=== PATIENT | male | born 1970 | race Caucasian/White ===

== ENCOUNTER 2024-07-26 13:44 | Emergency (ER) | payer OTHER ==
[2024-07-26 15:03] LABS: ALT (SGPT) 62 U/L (8-55); AST (SGOT) 37 U/L (5-34); Albumin 3.3 g/dL (3.5-5.0); Alkaline Phosphatase 101 U/L (40-110); Anion Gap 10 mmol/L (10-20); BUN (Urea Nitrogen) 13 mg/dL (8.4-25.7); Bilirubin, Total 0.7 mg/dL (0.2-1.2); Calc. Creatinine Clearance 0 mL/min (70-130); Calcium 8.5 mg/dL (7.8-10.44); Carbon Dioxide 21 mmol/L (22-29); Chloride 114 mmol/L (98-107); Estimated GFR 86; Globulin 3.5 g/dL (2.4-3.5); Glucose 98 mg/dL (70-105); Potassium 4.2 mmol/L (3.5-5.1); Protein, Total 6.8 g/dL (6.0-8.3); Sodium 141 mmol/L (136-145)
[2024-07-26 15:06] LABS: #Basophils 0.02 10x3/uL (0.0-0.2); #Eosinphils 0.15 10x3/uL (0.0-0.5); #Monocytes 0.39 10x3/uL (0.0-1.1); #Neutrophils 1.64 10x3/uL (1.5-8.4); %Basophils 0.7 % (0.0-2.0); %Eosinophils 5.4 % (0.0-6.0); %Lymphocytes 19.9 % (18.0-47.0); %Monocytes 14.1 % (0.0-10.0); %Neutrophils 59.5 % (40.0-75.0); Hemoglobin 6.9 g/dL (13.5-17.5); Mean Corpuscular HGB CONC 28.8 g/dL (32.0-36.0); Mean Corpuscular Hemoglobin 22.1 pg (27.0-33.0); Mean Corpuscular Volume 76.9 fL (81.2-95.1); Platelet Count 92 10x3/uL (150-450); RBC Distribution Width 18.4 % (11.5-14.5); Red Blood Cell (RBC) Count 3.12 10x6/uL (4.32-5.72); Troponin I Less than 0.010 ng/mL (< 0.028); White Blood Cell (WBC) Count 2.8 10x3/uL (3.5-10.5)
[2024-07-26 17:48] LABS: Troponin I Less than 0.010 ng/mL (< 0.028)
== END 2024-07-26 19:13 | disposition short-term general hospital (02) ==
LOC: CSHERS 13:44 → EEVIPCON 13:44 → CSHERS 19:13
DX: D61.818 Other pancytopenia (principal); I10 Essential (primary) hypertension; Z79.899 Other long term (current) drug therapy
CPT/HCPCS: 36430; 71045; 80053; 82274; 83735; 83880; 84484; 85025; 86850; 86900; 86901; 86922; 93005; P9016

== ENCOUNTER 2024-08-16 13:53 | Emergency (ER) | payer OTHER ==
[2024-08-16 14:31] LABS: #Basophils 0.03 10x3/uL (0.0-0.2); #Eosinophils 0.18 10x3/uL (0.0-0.5); #Monocytes 0.65 10x3/uL (0.0-1.1); #Neutrophils 2.72 10x3/uL (1.5-8.4); %Basophils 0.6 % (0.0-2.0); %Eosinophils 3.9 % (0.0-6.0); %Lymphocytes 22.6 % (18.0-47.0); %Neutrophils 58.7 % (40.0-75.0); Hematocrit 26.5 % (38.8-50.0); Hemoglobin 7.9 g/dL (13.5-17.5); Mean Corpuscular HGB CONC 29.8 g/dL (32.0-36.0); Mean Corpuscular Hemoglobin 23.1 pg (27.0-33.0); Mean Corpuscular Volume 77.5 fL (81.2-95.1); Mean Platelet Volume 11.8 fL (7.4-10.4); Platelet Count 133 10x3/uL (150-450); RBC Distribution Width 20.2 % (11.5-14.5); Red Blood Cell (RBC) Count 3.42 10x6/uL (4.32-5.72); White Blood Cell (WBC) Count 4.6 10x3/uL (3.5-10.5)
[2024-08-16 14:36] LABS: ALT (SGPT) 97 U/L (8-55); AST (SGOT) 46 U/L (5-34); Albumin 3.2 g/dL (3.5-5.0); Alkaline Phosphatase 100 U/L (40-110); Anion Gap 12 mmol/L (10-20); BUN (Urea Nitrogen) 42 mg/dL (8.4-25.7); Calc. Creatinine Clearance 0 mL/min (70-130); Calcium 9.4 mg/dL (7.8-10.44); Carbon Dioxide 24 mmol/L (22-29); Chloride 112 mmol/L (98-107); Estimated GFR 99; Globulin 3.4 g/dL (2.4-3.5); Glucose 112 mg/dL (70-105); Potassium 4.6 mmol/L (3.5-5.1); Protein, Total 6.6 g/dL (6.0-8.3); Sodium 143 mmol/L (136-145)
[2024-08-16 14:39] LABS: Troponin I Less than 0.010 ng/mL (< 0.028)
[2024-08-16 18:09] LABS: Troponin I 0.014 ng/mL (< 0.028)
[2024-08-16 19:19] LABS: #Basophils 0.02 10x3/uL (0.0-0.2); #Eosinophils 0.15 10x3/uL (0.0-0.5); #Monocytes 0.44 10x3/uL (0.0-1.1); %Basophils 0.6 % (0.0-2.0); %Eosinophils 4.6 % (0.0-6.0); %Lymphocytes 31.6 % (18.0-47.0); %Monocytes 13.5 % (0.0-10.0); %Neutrophils 49.1 % (40.0-75.0); Hematocrit 23.5 % (38.8-50.0); Hemoglobin 6.9 g/dL (13.5-17.5); Mean Corpuscular HGB CONC 29.4 g/dL (32.0-36.0); Mean Corpuscular Hemoglobin 22.8 pg (27.0-33.0); Mean Corpuscular Volume 77.8 fL (81.2-95.1); Mean Platelet Volume 11.6 fL (7.4-10.4); Platelet Count 113 10x3/uL (150-450); RBC Distribution Width 20.2 % (11.5-14.5); Red Blood Cell (RBC) Count 3.02 10x6/uL (4.32-5.72); White Blood Cell (WBC) Count 3.3 10x3/uL (3.5-10.5)
[2024-08-16] MEDS ORDERED: Acetaminophen 500 MG TAB ONE (19:29)
== END 2024-08-16 22:37 | disposition short-term general hospital (02) ==
LOC: EEVIPCON 13:53 → CSHERS 13:53
DX: R07.89 Other chest pain (principal); D64.9 Anemia, unspecified; I95.1 Orthostatic hypotension; I25.10 Atherosclerotic heart disease of native coronary artery without angina pectoris; E03.9 Hypothyroidism, unspecified; I10 Essential (primary) hypertension; I25.2 Old myocardial infarction; Z87.891 Personal history of nicotine dependence
CPT/HCPCS: 36415; 36430; 71045; 80053; 83880; 84484; 85025; 86850; 86900; 86901; 93005; P9016

== ENCOUNTER 2024-09-15 04:37 | Emergency (ER) | payer OTHER ==
[2024-09-15 05:16] LABS: MDiff Complete? YES
[2024-09-15 05:20] LABS: Hematocrit 15.1 % (38.8-50.0); Hemoglobin 4.4 g/dL (13.5-17.5); INR-International Normal Ratio 1.2; Mean Corpuscular HGB CONC 29.1 g/dL (32.0-36.0); Mean Corpuscular Hemoglobin 23.3 pg (27.0-33.0); Mean Corpuscular Volume 79.9 fL (81.2-95.1); Mean Platelet Volume 11.7 fL (7.4-10.4); PTT 24.2 sec (22.0-33.0); Platelet Count 80 10x3/uL (150-450); Prothrombin Time 12.8 sec (9.5-12.1); RBC Distribution Width 19.8 % (11.5-14.5); Red Blood Cell (RBC) Count 1.89 10x6/uL (4.32-5.72); White Blood Cell (WBC) Count 1.8 10x3/uL (3.5-10.5)
[2024-09-15 05:25] LABS: ALT (SGPT) 18 U/L (8-55); AST (SGOT) 13 U/L (5-34); Albumin 2.5 g/dL (3.5-5.0); Alkaline Phosphatase 72 U/L (40-110); Anion Gap 10 mmol/L (10-20); BUN (Urea Nitrogen) 10 mg/dL (8.4-25.7); Bilirubin, Total 0.5 mg/dL (0.2-1.2); Calc. Creatinine Clearance 0 mL/min (70-130); Calcium 7.4 mg/dL (7.8-10.44); Carbon Dioxide 18 mmol/L (22-29); Chloride 117 mmol/L (98-107); Estimated GFR 105; Globulin 2.5 g/dL (2.4-3.5); Glucose 80 mg/dL (70-105); Magnesium 1.7 mg/dL (1.6-2.6); Potassium 3.6 mmol/L (3.5-5.1); Sodium 141 mmol/L (136-145)
[2024-09-15 05:28] LABS: Troponin I Less than 0.010 ng/mL (< 0.028)
[2024-09-15 05:39] LABS: Band 8 % (5-11); Eosinophils 4 % (0-10); Lymphocytes 22 % (21-51); Monocytes 12 % (0-10); Neutrophil 54 % (42-75)
[2024-09-15 06:03] LABS: Anisocytosis MODERATE=16-30 cells (100X) (0-5/hpf); Elliptocytes SLIGHT = 2-5 cells (100X) (0-1/hpf); Hypochromia MODERATE=16-30 cells (100X) (0-5/hpf); Ovalocytes SLIGHT = 2-5 cells (100X) (0-1/hpf); Polychromasia SLIGHT = 2-3 cells (100X) (0-2/hpf)
[2024-09-15 06:04] LABS: Platelet Adequacy Comment Appears Decreased
[2024-09-15 06:05] LABS: Critical Call w/ Read Back NUR.AS7@0514/JG2/WIT
[2024-09-15] MEDS ORDERED: Octreotide Acetate 50 MCG/ML AMP ONE (06:12)
[2024-09-15] MEDS ORDERED: Pantoprazole 40 MG VIAL ONE (06:12)
[2024-09-15] MEDS ORDERED: SODIUM CHLORIDE 0.9% IVPB SCH (06:30)
[2024-09-15] MEDS ORDERED: Octreotide Acetate 1,250 MCG in Sodium Chloride 0.9% 250 ML 250 ML IVPB SCH (06:30)
[2024-09-15] MEDS ORDERED: OCTREOTIDE ACETATE IVPB SCH (06:30)
[2024-09-15 13:02] LABS: Platelet Count 95 10x3/uL (150-450)
[2024-09-15 13:03] LABS: #Basophils 0.02 10x3/uL (0.0-0.2); #Eosinophils 0.12 10x3/uL (0.0-0.5); #Monocytes 0.34 10x3/uL (0.0-1.1); #Neutrophils 1.13 10x3/uL (1.5-8.4); %Basophils 0.9 % (0.0-2.0); %Eosinophils 5.4 % (0.0-6.0); %Lymphocytes 27.4 % (18.0-47.0); %Monocytes 15.2 % (0.0-10.0); %Neutrophils 50.7 % (40.0-75.0); Mean Corpuscular HGB CONC 29.2 g/dL (32.0-36.0); Mean Corpuscular Hemoglobin 24.6 pg (27.0-33.0); Mean Corpuscular Volume 84.5 fL (81.2-95.1); Mean Platelet Volume 11.8 fL (7.4-10.4); RBC Distribution Width 17.9 % (11.5-14.5); Red Blood Cell (RBC) Count 2.84 10x6/uL (4.32-5.72); White Blood Cell (WBC) Count 2.2 10x3/uL (3.5-10.5)
[2024-09-15 13:14] LABS: Troponin I 0.012 ng/mL (< 0.028)
== END 2024-09-15 13:11 ==
LOC: CSHERS 04:37 → EEVIPCON 04:37 → CSHERS 13:11
DX: D64.9 Anemia, unspecified (principal); R07.89 Other chest pain; D61.818 Other pancytopenia; I10 Essential (primary) hypertension; I25.2 Old myocardial infarction; E78.5 Hyperlipidemia, unspecified; Z75.3 Unavailability and inaccessibility of health-care facilities; Z79.899 Other long term (current) drug therapy; Z87.891 Personal history of nicotine dependence
CPT/HCPCS: 36430; 71045; 80053; 83735; 83880; 84484; 85025; 85610; 85730; 86850; 86900; 86901; 93005; 96374; 96375; J2354; J2470; J7050; P9016

== ENCOUNTER 2024-10-14 04:23 | Emergency (ER) | payer OTHER ==
[2024-10-14] MEDS ORDERED: Octreotide Acetate 100 MCG/ML VIAL ONE ×2 (04:42→04:58)
[2024-10-14] MEDS ORDERED: Pantoprazole 40 MG VIAL ONE (04:42)
[2024-10-14 05:02] LABS: #Basophils 0.03 10x3/uL (0.0-0.2); #Monocytes 0.88 10x3/uL (0.0-1.1); #Neutrophils 8.51 10x3/uL (1.5-8.4); %Basophils 0.3 % (0.0-2.0); %Eosinophils 1.8 % (0.0-6.0); %Lymphocytes 12.9 % (18.0-47.0); %Monocytes 7.9 % (0.0-10.0); %Neutrophils 76.5 % (40.0-75.0); Hematocrit 20.7 % (38.8-50.0); Hemoglobin 6.3 g/dL (13.5-17.5); Mean Corpuscular HGB CONC 30.4 g/dL (32.0-36.0); Mean Corpuscular Hemoglobin 25.6 pg (27.0-33.0); Mean Corpuscular Volume 84.1 fL (81.2-95.1); Mean Platelet Volume 11.7 fL (7.4-10.4); Platelet Count 148 10x3/uL (150-450); RBC Distribution Width 20.9 % (11.5-14.5); Red Blood Cell (RBC) Count 2.46 10x6/uL (4.32-5.72); White Blood Cell (WBC) Count 11.1 10x3/uL (3.5-10.5)
[2024-10-14 05:03] LABS: INR-International Normal Ratio 1.2; Prothrombin Time 12.7 sec (9.5-12.1)
[2024-10-14 05:08] LABS: ALT (SGPT) 49 U/L (8-55); AST (SGOT) 28 U/L (5-34); Albumin 2.8 g/dL (3.5-5.0); Alkaline Phosphatase 74 U/L (40-110); Anion Gap 13 mmol/L (10-20); BUN (Urea Nitrogen) 55 mg/dL (8.4-25.7); Bilirubin, Total 0.5 mg/dL (0.2-1.2); Calc. Creatinine Clearance 0 mL/min (70-130); Calcium 8.2 mg/dL (7.8-10.44); Carbon Dioxide 18 mmol/L (22-29); Chloride 118 mmol/L (98-107); Estimated GFR 70; Globulin 3.1 g/dL (2.4-3.5); Glucose 125 mg/dL (70-105); Potassium 4.9 mmol/L (3.5-5.1); Protein, Total 5.9 g/dL (6.0-8.3); Sodium 144 mmol/L (136-145)
== END 2024-10-14 13:50 ==
LOC: EEVIPCON 04:23 → CSHERS 04:23
DX: K92.2 Gastrointestinal hemorrhage, unspecified (principal); I85.01 Esophageal varices with bleeding; I10 Essential (primary) hypertension; Z79.899 Other long term (current) drug therapy
CPT/HCPCS: 36430; 80053; 85025; 85610; 86850; 86900; 86901; 93005; 93010; 96365; 96366; 96375; J2354; J2470; P9016